=== PATIENT | male | born 1995 | race Caucasian/White ===

== ENCOUNTER 2019-03-24 08:29 | Day surgery (SDC) | payer BC ==
[2019-03-24] MEDS ORDERED: Sodium Chloride 0.9% 20 ML ONE (08:41)
[2019-03-24] MEDS ORDERED: Sodium Chloride 0.9% 1,000 ML IV SCH (08:45)
[2019-03-24] MEDS ORDERED: diphenhydrAMINE 50 MG/ML VIAL IVP SCH (08:45)
[2019-03-24] MEDS ORDERED: Acetaminophen 500 MG TAB PO SCH (08:45)
[2019-03-24] MEDS ORDERED: diphenhydrAMINE 25 MG CAP PO SCH (08:45)
[2019-03-24] MEDS ORDERED: Acetaminophen 500 MG TAB PO PRN (08:55)
[2019-03-24] MEDS ORDERED: INFLIXIMAB IVPB SCH (09:00)
[2019-03-24] MEDS ORDERED: SODIUM CHLORIDE 0.9% IVPB SCH (09:00)
[2019-03-24 09:08] VITALS: BP 117/86; TEMP 98.7
== END 2019-03-24 11:50 | disposition home or self-care (01) ==
LOC: ONC/OP 08:29
PROVIDERS: ATTEND Internal Medicine Gastroenterology
DX: K51.90 Ulcerative colitis, unspecified, without complications (principal)
CPT/HCPCS: 96413; 96415

== ENCOUNTER 2019-05-19 08:40 | Day surgery (SDC) | payer BC ==
[~2019-05-19 08:40] MED LIST: Acetaminophen 500 MG TAB PO PRN; Acetaminophen 500 MG TAB PO SCH; INFLIXIMAB IVPB SCH; SODIUM CHLORIDE 0.9% IVPB SCH; Sodium Chloride 0.9% 1,000 ML IV SCH; diphenhydrAMINE 25 MG CAP PO SCH; diphenhydrAMINE 50 MG/ML VIAL IVP SCH
[2019-05-19] MEDS ORDERED: Sodium Chloride 0.9% 20 ML ONE (08:42)
[2019-05-19] MEDS ORDERED: Acetaminophen 500 MG TAB PO PRN (08:49)
[2019-05-19] MEDS ORDERED: INFLIXIMAB IVPB SCH (09:00)
[2019-05-19] MEDS ORDERED: SODIUM CHLORIDE 0.9% IVPB SCH (09:00)
[2019-05-19 09:53] VITALS: BP 124/60; TEMP 98.6
== END 2019-05-19 11:39 | disposition home or self-care (01) ==
LOC: ONC/OP 08:40
PROVIDERS: ATTEND Internal Medicine Gastroenterology
DX: K51.90 Ulcerative colitis, unspecified, without complications (principal)
CPT/HCPCS: 96413; 96415; Q0163

== ENCOUNTER 2019-07-21 09:48 | Day surgery (SDC) | payer BC ==
[~2019-07-21 09:48] MED LIST changes: -Acetaminophen 500 MG TAB PO SCH; -Sodium Chloride 0.9% 1,000 ML IV SCH; +diphenhydrAMINE 25 MG CAP PO PRN; -diphenhydrAMINE 25 MG CAP PO SCH; -diphenhydrAMINE 50 MG/ML VIAL IVP SCH
[2019-07-21] MEDS ORDERED: Sodium Chloride 0.9% 20 ML ONE (09:53)
[2019-07-21 11:48] VITALS: BP 126/64; TEMP 98.5
== END 2019-07-21 13:41 | disposition home or self-care (01) ==
LOC: ONC/OP 09:48
PROVIDERS: ATTEND Internal Medicine Gastroenterology
DX: K51.90 Ulcerative colitis, unspecified, without complications (principal)
CPT/HCPCS: 96413; 96415; Q0163

== ENCOUNTER 2019-09-15 07:56 | Day surgery (SDC) | payer BC ==
[~2019-09-15 07:56] MED LIST changes: +Acetaminophen 500 MG TAB PO SCH; +Sodium Chloride 0.9% 1,000 ML IV SCH; -diphenhydrAMINE 25 MG CAP PO PRN; +diphenhydrAMINE 25 MG CAP PO SCH
[2019-09-15] MEDS ORDERED: Sodium Chloride 0.9% 20 ML ONE (08:18)
[2019-09-15 09:19] VITALS: BP 126/76; TEMP 98
== END 2019-09-15 11:59 | disposition home or self-care (01) ==
LOC: ONC/OP 07:56
PROVIDERS: ATTEND Internal Medicine Gastroenterology
DX: K51.90 Ulcerative colitis, unspecified, without complications (principal)
CPT/HCPCS: 96413; 96415; Q0163

== ENCOUNTER 2019-11-10 08:34 | Day surgery (SDC) | payer BC ==
[2019-11-10] MEDS ORDERED: Sodium Chloride 0.9% 20 ML ONE (08:40)
[2019-11-10] MEDS ORDERED: Acetaminophen 500 MG TAB PO PRN (08:48)
[2019-11-10] MEDS ORDERED: Sodium Chloride 0.9% 1,000 ML IV SCH (09:00)
[2019-11-10] MEDS ORDERED: Acetaminophen 500 MG TAB PO SCH (09:00)
[2019-11-10] MEDS ORDERED: INFLIXIMAB IVPB SCH (09:00)
[2019-11-10] MEDS ORDERED: diphenhydrAMINE 25 MG CAP PO SCH (09:00)
[2019-11-10] MEDS ORDERED: SODIUM CHLORIDE 0.9% IVPB SCH (09:00)
[2019-11-10 12:10] VITALS: BP 131/79; TEMP 98.1
== END 2019-11-10 12:10 | disposition home or self-care (01) ==
LOC: ONC/OP 08:34
PROVIDERS: ATTEND Internal Medicine Gastroenterology
DX: K51.90 Ulcerative colitis, unspecified, without complications (principal)
CPT/HCPCS: 96413; 96415; Q0163

== ENCOUNTER 2020-01-05 09:05 | Day surgery (SDC) | payer BC ==
[~2020-01-05 09:05] MED LIST changes: -Acetaminophen 500 MG TAB PO SCH; -INFLIXIMAB IVPB SCH; -SODIUM CHLORIDE 0.9% IVPB SCH; -Sodium Chloride 0.9% 1,000 ML IV SCH; +diphenhydrAMINE 25 MG CAP PO PRN; -diphenhydrAMINE 25 MG CAP PO SCH
[2020-01-05] MEDS ORDERED: Sodium Chloride 0.9% 20 ML ONE (09:14)
[2020-01-05] MEDS ORDERED: INFLIXIMAB IVPB SCH (09:15)
[2020-01-05] MEDS ORDERED: SODIUM CHLORIDE 0.9% IVPB SCH (09:15)
[2020-01-05 11:41] VITALS: BP 130/85; TEMP 98.6
== END 2020-01-05 13:35 | disposition home or self-care (01) ==
LOC: ONC/OP 09:05
PROVIDERS: ATTEND Internal Medicine Gastroenterology
DX: K51.90 Ulcerative colitis, unspecified, without complications (principal)
CPT/HCPCS: 96413; 96415; Q0163

== ENCOUNTER 2020-03-11 08:21 | Day surgery (SDC) | payer BC ==
[~2020-03-11 08:21] MED LIST changes: +Acetaminophen 325 MG TAB PO PRN; -Acetaminophen 500 MG TAB PO PRN; +Ustekinumab 390 MG in Sodium Chloride 0.9% 250 ML 172 ML IV SCH; -diphenhydrAMINE 25 MG CAP PO PRN
[2020-03-11 08:41] VITALS: BP 125/72; TEMP 98.8
== END 2020-03-11 12:58 | disposition home or self-care (01) ==
LOC: ONC/OP 08:21
PROVIDERS: ATTEND Internal Medicine Gastroenterology
DX: K51.90 Ulcerative colitis, unspecified, without complications (principal)
CPT/HCPCS: 96413; J3358; J7050